=== PATIENT | female | born 1985 | race Asian ===

== ENCOUNTER 2017-03-18 02:50 | Emergency (ER) | payer SELFPAY ==
[~2017-03-18] VITALS: Ht 165.1 cm; Wt 68.0 kg
[2017-03-18 05:37] VITALS: BP 103/61
== END 2017-03-18 05:37 | disposition home or self-care (01) ==
LOC: ED 02:50
DX: F10.129 Alcohol abuse with intoxication, unspecified (principal); R11.2 Nausea with vomiting, unspecified
CPT/HCPCS: J7030